=== PATIENT | male | born 1955 | race Two or more races ===

== ENCOUNTER 2025-06-19 07:00 | Day surgery (SDC) | payer MEDICARE, SELFPAY ==
[2025-06-18 14:42] VITALS: BMI 28.8
[2025-06-19] VITALS (9 sets, daily range): BP systolic 120–171; BP diastolic 57–75; PULSE 41–70; RESP 11–18; TEMP 36.2–36.5; O2SAT 92–99; BMI 28.8
[2025-06-19] MEDS: fentaNYL CIT INJ 50 mCg/ML AMP 2ML (ASD USE ONLY) IVP (07:43)
[2025-06-19] MEDS: MIDAZOLAM INJ 1 MG/ML VIAL 2 ML (ASD USE ONLY) 2 MG IVP (07:43)
[2025-06-19] MEDS: SODIUM CHLORIDE 0.9% 500 ML 500 ML 100 ML IV (07:43)
== END 2025-06-19 08:39 | disposition home or self-care (01) ==
PROVIDERS: PCP Family Medicine; Referring Provider Surgery; Visit Provider Surgery
PROC: 0DBE8ZX Excision of Large Intestine, Via Natural or Artificial Opening Endoscopic, Diagnostic (ICD-10-PCS; CPT 45380; principal; 2025-06-19 07:30)
DX: Z12.11 Encounter for screening for malignant neoplasm of colon (principal); D12.2 Benign neoplasm of ascending colon; K64.0 First degree hemorrhoids; K57.30 Diverticulosis of large intestine without perforation or abscess without bleeding; Z12.12 Encounter for screening for malignant neoplasm of rectum; I10 Essential (primary) hypertension; Z79.899 Other long term (current) drug therapy
CPT/HCPCS: 45385; A4649; J1200; J2250; J3010; J7999